=== PATIENT | female | born 1990 | race Caucasian/White ===

== ENCOUNTER 2018-02-02 08:39 | Inpatient (IN) ==
[2018-02-02] MEDS ORDERED: Naloxone Inj 0.4 MG/ML Vial IV.PUSH PRN (09:53)
[2018-02-02] MEDS ORDERED: fentaNYL Citrate Inj 100 MCG/2 ML Ampul IV.PUSH PRN ×2 (09:53)
[2018-02-02] MEDS ORDERED: Oxytocin 30 Units/500ml Premix 30 UNITS/500 ML BAG IV.SIG ONE (09:53)
[2018-02-02] MEDS ORDERED: Sod Chloride 0.9% Inj 1,000 ML IV.CONT PRN (09:53)
[2018-02-02] MEDS ORDERED: Sodium Chlor 0.9% Inj 500 ML IV.SIG PRN (09:53)
[2018-02-02] MEDS ORDERED: Citric Acid/Sodium Citrate Liq 30 ML UDC PO SCH (10:00)
[2018-02-02 10:07] LABS: Baso % (Auto) 0.2 % (0.0-2.0); Eos # (Auto) 0.1 th/mm3 (0.0-0.4); Eos % (Auto) 0.8 % (0.0-4.0); Hematocrit 39.8 % (35.0-46.0); Hemoglobin 13.9 gm/dL (11.6-15.3); Lymph # (Auto) 1.4 th/mm3 (1.0-4.8); Lymph % (Auto) 15.7 % (9.0-44.0); Mean Corpuscular HGB Conc 34.9 % (32.0-36.0); Mean Corpuscular Hemoglobin 31.6 pg (27.0-34.0); Mean Corpuscular Volume 90.7 fL (80.0-100.0); Mean Platelet Volume 8.7 fL (7.0-11.0); Mono # (Auto) 0.7 th/mm3 (0.0-0.9); Mono % (Auto) 7.4 % (0.0-8.0); Neut # (Auto) 6.8 th/mm3 (1.8-7.7); Neut % (Auto) 75.9 % (16.0-70.0); Platelet Count 185 th/mm3 (150-450); Red Blood Count 4.39 mil/mm3 (4.00-5.30); Red Cell Distribution Width 13.9 % (11.6-17.2)
[2018-02-02 10:16] LABS: Amorphous Sediment,Urine Rare /hpf; Bacteria,Urine Few /hpf; Bilirubin,Urine Negative (Negative); Clarity,Urine Clear (Clear); Color,Urine Straw (Yellw/Straw); Glucose,Urine (UA) Negative (Negative); Leukocyte Esterase,Urine Negative (Negative); Nitrite,Urine Negative (Negative); Specific Gravity,Urine 1.002 (1.002-1.035); Squamous Epithelial Cell,Urine 1 /hpf (0-5)
[2018-02-02] MEDS ORDERED: Oxytocin 30 Units/500ml Premix 30 UNITS/500 ML BAG IV.SIG PRN (10:16)
[2018-02-02 10:20] LABS: Amphetamine Urine With Conf Neg (Neg); Benzodiazepine Urine With Conf Neg (Neg); Cocaine Urine With Conf Neg (Neg); Opiates Urine With Conf Neg (Neg)
[2018-02-02 10:22] LABS: Cannabinoid Urine With Conf Neg (Neg)
--- NOTE | 2018-02-02 10:25 | P.HPOB ---
History of Present Illness Service: labor Primary Care Physician: No Primary Care Physician History of Present Illness: 27 yo mwf with LMP 05/12/17 at 38 weeks EGA and mildly induced hypertension here for induction. BPs consistently 150s/90s with normal labs, lack of symptoms and good surveillance. PNC in early first trimester -- no PTL and no GDM. Likely mild essential hypertension. 37 pound weight gain. Weeks Gestation:: 38 Para: 0 - Inpatient Certification I certify that the inpatient services were ordered in accordance with Medicare regulations governing the order. This includes certification that hospital inpatient services are reasonable and necessary and in the case of services not specified as inpatient-only under 42 CFR 419.22(n), that they are appropriately provided as inpatient services in accordance to with the 2-midnight benchmark under 43 CFR 412.3(e) Estimated Total Length of Stay (Days): 3 Plans for Post Hospital Care: Home Review of Systems All other systems reviewed negative except as stated in HPI PMFSH - Medical / Surgical Hx Neg / Unobtainable Medical Problems Denied: Yes Surgical History: No Previous Surgery - Social History I have reviewed the patient's Social History: Yes - Tobacco History Smoking Status: Never smoker - Travel History Recent Travel in the [place] Within the Last 8 Weeks: No Recent Travel Out of the Country Within the Last 8 Weeks: No Medications and Allergies Active Medications: Active Medications Citric Acid/Sodium Citrate (Sodium Citrate/Citric Acid Liq) 30 ml PO [facility] [employer] Stop: 02/06/18 09:59 Fentanyl Citrate (Fentanyl Inj) 50 mcg IV.PUSH Q1H PRN PRN Reason: Pain Scale 3 - 5 Fentanyl Citrate (Fentanyl Inj) 100 mcg IV.PUSH Q1H PRN PRN Reason: PAIN SCALE 6 TO 10 Lactated Ringer's (Lr 1000 Ml Inj) 1,000 mls @ 125 mls/hr IV.CONT .Q8H [facility] Sodium Chloride (Ns Inj) 500 mls @ 1,000 mls/hr IV.SIG UNSCH PRN PRN Reason: SEE LABEL COMMENTS Sodium Chloride (Ns Inj) 1,000 mls @ 100 mls/hr IV.CONT .Q10H PRN PRN Reason: SEE LABEL COMMENTS Oxytocin (Pitocin 30 Units/Ns 500 Ml Premix) 30 units in 500 mls @ 999 mls/hr IV.SIG BOLUS ONE Stop: 02/02/18 10:23 Lactated Ringer's (Lr 1000 Ml Inj) 1,000 mls @ 3,000 mls/hr IV.SIG UNSCH PRN PRN Reason: compromise or epidural Oxytocin (Pitocin 30 Units/Ns 500 Ml Premix) 30 units in 500 mls @ 2 mls/hr IV.SIG TITRATE PRN; Protocol PRN Reason: For induction of labor Lidocaine HCl (Xylocaine 1% Inj) 0.1 ml I-DERMAL PRN PRN PRN Reason: For IV start Stop: 02/05/18 09:52 Lidocaine HCl (Xylocaine 1% Inj) 10 ml INFILTRATN PRN PRN PRN Reason: For episiotomy repair Stop: 02/04/18 09:52 Mineral Oil (Muri-Lube Oil) 10 ml TOPICAL PRN PRN PRN Reason: PRN perineal massage Naloxone HCl (Narcan Inj) 0.1 mg IV.PUSH Q2M PRN PRN Reason: for opiate reversal Allergies Allergy/AdvReac Type Severity Reaction Status Date / Time Sulfa (Sulfonamide Allergy Hives Verified 02/02/18 09:44 Antibiotics) Home Medications Medication Instructions Recorded Confirmed Type aspirin 81 mg PO DAILY 02/02/18 02/02/18 History methyldopa 250 mg PO BID 02/02/18 02/02/18 History vit,[id number] 1 tab PO DAILY 02/02/18 02/02/18 History [PNV 29-1] Exam Vital signs: Vital Signs 02/02/18 09:05 02/02/18 09:10 02/02/18 09:50 Temperature 98.1 F Pulse Rate 109 H 100 H 93 H Respiratory Rate 18 Blood Pressure 153/87 H 02/02/18 09:55 02/02/18 10:10 Temperature Pulse Rate 92 H 96 H Respiratory Rate Blood Pressure Intake & Output 02/01/18 02/02/18 02/02/18 18:59 06:59 18:59 Weight 95.254 kg Other: Weight On Admission 95.254 kg - Constitutional no acute distress - Routine HEENT Exam Head: Present: normocephalic Eye: Present: PERRL ENT: Present: mucous membranes moist - Routine Neck Exam Present: supple - Routine Respiratory Exam Present: CTA bilaterally - Routine Cardiovascular Exam Present: RRR - Routine Abdominal Exam Present: soft - Routine Extremities Exam Present: edema - Routine Skin Exam Present: intact - Routine Neurological Exam Present: alert, oriented X3 (2 cm/long, soft very posterior), CN II-XII intact (7 pounds), sensory deficit (clinically adequate) Results - Labs CBC & Chem 7: 02/02/18 09:10 Labs: Laboratory Results - last 24 hr 02/02/18 09:10 WBC 9.0 RBC 4.39 Hgb 13.9 Hct 39.8 MCV 90.7 MCH 31.6 MCHC 34.9 RDW 13.9 Plt Count 185 MPV 8.7 Neut % (Auto) 75.9 H Lymph % (Auto) 15.7 Brooke % (Auto) 7.4 Eos % (Auto) 0.8 Baso % (Auto) 0.2 Neut # (Auto) 6.8 Lymph # (Auto) 1.4 Brooke # (Auto) 0.7 Eos # (Auto) 0.1 Baso # (Auto) 0.0 WBC Differential . Differential Comment Auto diff final Group B Strep: Negative Caprini VTE Risk Assessment Caprini VTE Risk Assessment: No/Low Risk (score <= 1) Caprini Risk Assessment Model: Point Value = 1 Point Value = 2 Point Value = 3 Point Value = 5 Age 41-60 Minor surgery BMI > 25 kg/m2 Swollen legs Varicose veins or History of unexplained or recurrent spontaneous Oral contraceptives or hormone replacement Sepsis (< 1 month) Serious lung disease, including pneumonia (< 1 month) Abnormal pulmonary function Acute myocardial infarction Congestive heart failure (< 1 month) History of inflammatory bowel disease Medical patient at bed rest Age 61-74 Arthroscopic surgery Major open surgery (> 45 min) Laparoscopic surgery (> 45 min) Malignancy Confined to bed (> 72 hours) Immobilizing plaster cast Central venous access Age >= 75 History of VTE Family history of VTE Factor V Leiden Prothrombin [id number] Lupus anticoagulant Anticardiolipin antibodies Elevated serum homocysteine Heparin-induced thrombocytopenia Other congenital or acquired thrombophilia Stroke (< 1 month) Elective arthroplasty Hip, pelvis, or leg fracture Acute spinal cord injury (< 1 month) Prophylaxis Regimen: Total Risk Factor Score Risk Level Prophylaxis Regimen 0-1 Low Early ambulation 2 Moderate Order ONE of the following: *Sequential Compression Device (SCD) *Heparin 5000 units SQ BID 3-4 Higher Order ONE of the following medications: *Heparin 5000 units SQ TID *Enoxaparin/Lovenox 40 mg SQ daily (WT < 150 kg, CrCl > 30 mL/min) *Enoxaparin/Lovenox 30 mg SQ daily (WT < 150 kg, CrCl > 10-29 mL/min) *Enoxaparin/Lovenox 30 mg SQ BID (WT < 150 kg, CrCl > 30 mL/min) AND/OR *Sequential Compression Device (SCD) 5 or more Highest Order ONE of the following medications: *Heparin 5000 units SQ TID (Preferred with Epidurals) *Enoxaparin/Lovenox 40 mg SQ daily (WT < 150 kg, CrCl > 30 mL/min) *Enoxaparin/Lovenox 30 mg SQ daily (WT < 150 kg, CrCl > 10-29 mL/min) *Enoxaparin/Lovenox 30 mg SQ BID (WT < 150 kg, CrCl > 30 mL/min) AND *Sequential Compression Device (SCD) Assessment and Plan - Diagnosis (1) Hypertension affecting Code(s): O16.9 - Unspecified maternal hypertension, unspecified trimester Status: Acute - Plan indiuction for mild HTN reviewed that benefits of induction at this time exceed risks pitocin and epidural prn
--- NOTE | 2018-02-02 13:51 | P.OBGPN ---
S: Doing well, pain controlled. No vaginal bleeding or leakage of fluid. No LANDRY , vision changes, epigastric pain O: Exam: 2/0/-3, firm / posterior FHTs: 130s-140s, moderate variability, accelerations present, no decelerations TOCO: Contractions every 3-5 minutes A/P 28-year-old G1 at 38 weeks 0 days by L/8 here for induction of labor secondary to hypertension. 1. IUP: Category 1 tracing -No recent ultrasound EFW, on 12/27 was 74th percentile. -GBS negative, posterior placenta 2. Induction of labor: Secondary to hypertension, per admitting physician pt on pit since arrival, 14 no, BS of 2, will stop pit, begin PV miso 25mcg q4h until favorable, max 6 doses 3. Hypertension: Per record review patient has had elevated blood pressure since 25 weeks occasionally but only mild range, no 24-hour urine done, has been on Aldomet 250 mg twice daily for 1 month, will hold while in labor. No signs or symptoms of preeclampsia at this time. CBC WNL, will send CMP and P:C,
[2018-02-02 14:44] LABS: Alanine Aminotransferase 18 U/L (10-53); Albumin 2.7 g/dL (3.4-5.0); Anion Gap 10 meq/L (5-15); Aspartate Aminotransferase 19 U/L (15-37); Blood Urea Nitrogen 7 mg/dL (7-18); Calcium 8.4 mg/dL (8.5-10.1); Carbon Dioxide 21.8 meq/L (21.0-32.0); Chloride 109 meq/L (98-107); Glomerular Filtration Rate Greater Than 89 mL/min (>89); Glucose,Random 97 mg/dL (74-106); Potassium 3.4 meq/L (3.5-5.1); Sodium 141 meq/L (136-145)
[2018-02-02 14:47] LABS: Alkaline Phosphatase 233 U/L (45-117); Total Protein 6.9 g/dL (6.4-8.2)
--- NOTE | 2018-02-03 08:14 | P.OBGPN ---
S: Doing well, pain controlled. No vaginal bleeding or leakage of fluid. No LANDRY , vision changes, epigastric pain O: Exam: 2/0/-3, firm / posterior FHTs: 130s-140s, moderate variability, accelerations present, no decelerations TOCO: Contractions every 3-5 minutes A/P 28-year-old G1 at 38 weeks 1 days by L/8 here for induction of labor secondary to hypertension. 1. IUP: Category 1 tracing -No recent ultrasound EFW, on 12/27 was 74th percentile. EFW by exam 7.5lbs -GBS negative, posterior placenta 2. Induction of labor: Secondary to hypertension, BS of 2 on arrival, s/p PV miso x2, nursing elected to not move forward with any repeat dosing due to concerns for tachysystole however or she did not meet this criteria, she has no cervical change this morning since yesterday. Discussed options at this time plan is for Cook cath. 3. Hypertension: Per record review patient has had elevated blood pressure since 25 weeks occasionally but only mild range, no 24-hour urine done, has been on Aldomet 250 mg twice daily for 1 month, will hold while in labor. BPs here mild range to normotensive. No signs or symptoms of preeclampsia at this time. HELLP labs WNL, P:C ordered but yet to be completed
--- NOTE | 2018-02-03 08:58 | P.OBGPN ---
S: Doing well, pain controlled. No vaginal bleeding or leakage of fluid. No LANDRY , vision changes, epigastric pain O: Exam: 3/thick/-3, medium, posterior. Cook cath placed with 80/80cc FHTs: 130s-140s, moderate variability, accelerations present, no decelerations TOCO: Contractions every 3-5 minutes A/P 28-year-old G1 at 38 weeks 1 days by L/8 here for induction of labor secondary to hypertension. 1. IUP: Category 1 tracing -No recent ultrasound EFW, on 12/27 was 74th percentile. EFW by exam 7.5lbs -GBS negative, posterior placenta 2. Induction of labor: Secondary to hypertension, BS of 2 on arrival, s/p PV miso x2, nursing elected to not move forward with any repeat dosing due to concerns for tachysystole however or she did not meet this criteria, she has no cervical change this morning since yesterday. Discussed options at this time plan is for Cook cath, placed now, pt very understanding of long IOL process. 3. Hypertension: Per record review patient has had elevated blood pressure since 25 weeks occasionally but only mild range, no 24-hour urine done, has been on Aldomet 250 mg twice daily for 1 month, will hold while in labor. BPs here mild range to normotensive. No signs or symptoms of preeclampsia at this time. HELLP labs WNL, P:C ordered but yet to be completed
--- NOTE | 2018-02-03 18:19 | P.OBGPN ---
S: Doing well, pain controlled. No vaginal bleeding or leakage of fluid. No LANDRY , vision changes, epigastric pain O: Exam: Cook removed, /-3, head palpable, AROM, thick jelatinous bloody fluid. FHTs: 140 to 150s, moderate variability, accelerations present, no decelerations TOCO: Contractions every 5-10 A/P 28-year-old G1 at 38 weeks 1 days by L/8 here for induction of labor secondary to hypertension. 1. IUP: Category 1 tracing -No recent ultrasound EFW, on 12/27 was 74th percentile. EFW by exam 7.5lbs -GBS negative, posterior placenta 2. Induction of labor: s/p PV miso x2, cook removed AROM this check (1800) begin pit per protocol. Discussed need for if failed IOL, will make that decision after 12-18hrs of pit after AROM 3. Hypertension: Per record review patient has had elevated blood pressure since 25 weeks occasionally but only mild range, no 24-hour urine done, has been on Aldomet 250 mg twice daily for 1 month, will hold while in labor. BPs here mild range to normotensive. No signs or symptoms of preeclampsia at this time. HELLP labs WNL, P:C ordered but yet to be completed
[2018-02-03] MEDS ORDERED: Oxytocin 30 Units/500ml Premix 30 UNITS/500 ML BAG IV.SIG PRN (19:10)
[2018-02-03] MEDS ORDERED: fentaNYL 2MCG-Bupiv 0.125% Epi 150 ML EPIDURAL ONE (21:12)
[2018-02-03] MEDS ORDERED: fentaNYL Citrate Inj 100 MCG/2 ML Ampul EPIDURAL ONE (21:44)
[2018-02-03] MEDS ORDERED: fentaNYL 2MCG-Bupiv 0.125% Epi 150 ML EPIDURAL PRN (21:44)
[2018-02-04] MEDS ORDERED: miSOPROStol 200 MCG Tablet ONE (07:55)
[2018-02-04] MEDS ORDERED: Methylergonovine Inj 0.2 MG/ML Ampul ONE (07:56)
[2018-02-04] MEDS ORDERED: Bisacodyl 10 MG Supp RECTAL PRN (08:47)
[2018-02-04] MEDS ORDERED: Zolpidem Tartrate 5 MG Tablet PO PRN (08:47)
[2018-02-04] MEDS ORDERED: Naloxone Inj 0.4 MG/ML Vial IV.PUSH PRN (08:47)
[2018-02-04] MEDS ORDERED: Oxytocin 30 Units/500ml Premix 30 UNITS/500 ML BAG IV.CONT PRN (08:47)
[2018-02-04] MEDS ORDERED: Benzocaine 20% Top Spray 60 ML Can TOPICAL PRN (08:47)
[2018-02-04] MEDS ORDERED: Acetaminophen 325 MG Tablet PO PRN (08:47)
[2018-02-04] MEDS ORDERED: Oxytocin 30 Units/500ml Premix 30 UNITS/500 ML BAG ONE (08:51)
--- NOTE | 2018-02-04 08:53 | P.OP ---
Surgeon: Tung Camarillo MD Operation and Findings: Preoperative diagnosis: 1. Intrauterine at 38 weeks and 2 days 2. Gestational hypertension Postop diagnosis 1. Same as above status post vacuum-assisted delivery Procedure 1. Vacuum-assisted vaginal delivery Surgeon Dr. Tung Camarillo Dish Maker: [facility] labor and delivery nursing staff Findings: 1. Viable male at 8:17 AM, Apgars 8 and 9, weight 3815g 2. Intact placenta 3 vessel cord at 8:21 AM 3. Second-degree perineal laceration Anesthesia: Epidural Specimen: Placenta to disposal Estimated blood loss: 300 cc Fluid replacement: Lactated Ringer's and Pitocin Urine output: None recorded DVT prophylaxis: None required Antibiotics: None required Counts: correct x2 Time out done: yes Disposition: Stable to PACU Indications: Patient is a 28-year-old who presented for induction of labor secondary to gestational hypertension, she received cervical ripening with Ines chrisstmey, had tachysystole and a Cook catheter was placed for mechanical ripening, this was removed she was artificially ruptured and started on Pitocin, the following day she progressed to complete, pushed for 3 hours made slow descent and due to maternal exhaustion had difficulty with the last aspects of pushing, I consented her for a vacuum delivery. Description of procedure: Consent: The risks (which are relatively low and generally are viewed as acceptable for the above indications by ACOG), benefits , alternatives, expected outcomes, and risks of declining treatment were explained and discussed with the patient risks including but not limited to scalp laceration, retinal hemorrhages, brachial plexus injury, cephalohematoma formation, and subgaleal or intracranial hemorrhage, which typically are transient but can results in permanent neurological sequela. Maternal risk included but not limited to perineal laceration and failure of vacuum and potentially needed a . Description of procedure: The fetus was at +2 station and in occiput anterior position, the bladder was drained, and her anesthesia was adequate, the vacuum was placed 2 cm anterior to the posterior fontanelle over the sagital suture. Suction was applied to green and with coordination of maternal pushing efforts downward traction was applied with the vacuum until the head was , suction and the vacuum was removed. The head upon was allowed to restitute naturally after delivery with a supported perineum, a loose nuchal cord was reduced, with gentle downward guidance anterior shoulder was delivered followed by gentle upper guidance for the posterior shoulder, the torso and lower extremities delivered with ease with continued perineal support. The infant had spontaneous cry and was placed on mom's abdomen for skin to skin contact, we allow delayed cord clamping. After the cord was clamped and cut, cord blood was obtained. Pitocin was bolused and with fundal massage the placenta was delivered, there is minimal bleeding from above and uterus was firm. The perineum vagina and cervix were inspected and a second-degree laceration was appreciated and repaired with 3-0 Vicryl in the standard fashion.. The patient tolerated the procedure well and was left in the birthing suite with her .
[2018-02-04] MEDS ORDERED: Witch Hazel 50%/Glyderin 12.5% 40 Pad Jar RECTAL PRN (09:00)
[2018-02-04] MEDS: Senna/Docusate Sodium 8.6/50 MG Tablet PO SCH ×2 (11:46→20:27)
[2018-02-04] MEDS ORDERED: Measles/Mumps/Rubella Vaccine Inj 0.5 ML Vial SQ ONE (16:00)
[2018-02-04] MEDS ORDERED: Diphtheria/Tetanus/Pertussis Vaccine Inj 0.5 ML Syringe IM ONE (16:00)
--- NOTE | 2018-02-05 08:22 | P.PNOB ---
Subjective Post day: 1 Interval history: Doing well after extended induction no headache, nausea, vomiting or signs or pre eclampsia baby for circumcision nursing Objective Vital Signs/I&O: Vital Signs 02/04/18 08:49 02/04/18 09:00 02/04/18 09:15 Temperature 98.8 F Pulse Rate 85 83 75 Respiratory Rate 20 18 20 Blood Pressure 123/81 116/80 118/80 02/04/18 09:30 02/04/18 09:38 02/04/18 09:46 Temperature Pulse Rate 72 115 H Respiratory Rate 18 Blood Pressure 117/78 108/54 L 02/04/18 10:00 02/04/18 10:15 02/04/18 10:30 Temperature Pulse Rate 81 78 Respiratory Rate 20 20 18 Blood Pressure 125/80 109/94 H 02/04/18 10:31 02/04/18 11:15 02/04/18 21:00 Temperature 98.0 F 97.9 F Pulse Rate 77 79 95 H Respiratory Rate 18 18 Blood Pressure 124/78 125/78 120/76 Result Diagrams: 02/02/18 09:10 02/02/18 09:10 Objective Remarks: GENERAL: Well-nourished, well-developed patient. CARDIOVASCULAR: Regular rate and rhythm without murmurs, gallops, or rubs. RESPIRATORY: Breath sounds equal bilaterally. No accessory muscle use. ABDOMEN/GI: Abdomen soft, non-tender. Fundus: Firm, non-tender at umbilicus. GENITOURINARY: Light to moderate bleeding. EXTREMITIES: No cyanosis or edema, non-tender, without signs of DVT. Medications and IVs: Active Medications Acetaminophen (Tylenol) 650 mg PO Q4H PRN PRN Reason: PAIN SCALE 1 TO 2 Al Hydroxide/Mg Hydroxide (Milk Of Magnesia Liq) 30 ml PO Q12H PRN PRN Reason: Mild Constipation Benzocaine (Americaine 20% [place]) 1 spray TOPICAL Q4H PRN PRN Reason: For Perineum Discomfort Last Admin: 02/04/18 20:26 Dose: 1 spray Bisacodyl (Dulcolax Supp) 10 mg RECTAL DAILY PRN PRN Reason: SEVERE CONSITIPATION Fentanyl/Bupivacaine/Sodium Chlor (Fentanyl 2 Mcg-Bupiv 0.125% Epi) 150 mls @ 13 mls/hr EPIDURAL PRN PRN PRN Reason: for Labor Pain Last Admin: 02/03/18 21:36 Dose: 13 mls/hr Oxytocin (Pitocin 30 Units/Ns 500 Ml Premix) 30 units in 500 mls @ 100 mls/hr IV.CONT UNSCH PRN PRN Reason: Heavy bleeding Last Admin: 02/04/18 09:04 Dose: 100 mls/hr Ibuprofen (Motrin) 800 mg PO Q8H PRN PRN Reason: For Cramping Last Admin: 02/05/18 05:04 Dose: 800 mg Lactulose (Lactulose Liq) 30 ml PO DAILY PRN PRN Reason: SEVERE CONSITIPATION Naloxone HCl (Narcan Inj) 0.1 mg IV.PUSH Q2M PRN PRN Reason: for opiate reversal Ondansetron HCl (Zofran Odt) 4 mg PO Q6H PRN PRN Reason: NAUSEA OR VOMITING Senna/Docusate Sodium (Shayy-Colace) 1 tab PO BID [facility] Last Admin: 02/04/18 20:27 Dose: 1 tab Sennosides (Senokot) 17.2 mg PO Q12H PRN PRN Reason: Moderate Constipation Sodium Chloride (Ns Flush) 2 ml IV.FLUSH PRN PRN PRN Reason: FLUSH AFTER USING IV ACCESS Sodium Chloride (Ns Flush) 2 ml IV.FLUSH BID [facility] Last Admin: 02/04/18 11:46 Dose: Not Given Witch Christie/Glycerin (Tucks Pads) 1 applicatio RECTAL QID PRN PRN Reason: HEMORRHOIDS Last Admin: 02/04/18 20:26 Dose: 1 applicatio Zolpidem Tartrate (Ambien) 5 mg PO HS PRN PRN Reason: SLEEP Assessment and Plan - Plan indiuction for mild HTN reviewed that benefits of induction at this time exceed risks pitocin and epidural prn PPD 1 Doing well s/p vacuum assisted VD desires circumcision and will do later today anticipate discharge in am
[2018-02-05] MEDS: Senna/Docusate Sodium 8.6/50 MG Tablet PO SCH (09:48)
== END 2018-02-05 19:55 | disposition home or self-care (01) ==
LOC: H2E 08:39 → H1EA 02-04 10:56
PROVIDERS: ADMIT Obstetrics & Gynecology; ATTEND Obstetrics & Gynecology